=== PATIENT | female | born 1975 | race Caucasian/White ===

== ENCOUNTER 2017-01-04 18:51 | Emergency (ER) | payer MEDICAID ==
[2017-01-04 20:09] LABS: BASOPHILS 0.3 % (0.0-2.0); EOSINOPHILS 2.4 % (0-7); HEMATOCRIT 41.2 % (36.0-48.0); HEMOGLOBIN 13.9 g/dL (12-16); IMMATURE GRANULOCYTES 0.3 % (0-5); LYMPHOCYTES 15.8 % (15-50); MCH 30.6 pg (26.0-34.0); MCHC 33.7 g/dL (31.0-37.0); MCV 90.7 fL (80.0-100.0); MEAN PLATELET VOLUME 9.3 fL (7.4-10.4); MONOCYTES 4.7 % (2-11); NEUTROPHILS 76.5 % (40-80); RBC 4.54 10x6/uL (4.00-5.40); RDW 12.3 % (11.5-14.5); WBC 14.4 10x3/uL (4.8-10.8)
[2017-01-04 20:11] LABS: PLATELET COUNT 294 10x3/uL (130-400)
[2017-01-04 20:30] LABS: ALBUMIN 3.5 g/dL (3.4-5.0); ANION GAP 9.7 mmol/L (8-16); BILIRUBIN - TOTAL 0.15 mg/dL (0.2-1.3); CALCIUM 9.1 mg/dL (8.5-10.1); CARBON DIOXIDE 31.1 mmol/L (21.0-32.0); POTASSIUM - SERUM 3.8 mmol/L (3.5-5.1); PROTEIN - SERUM 6.9 g/dL (6.4-8.2)
[2017-01-04 20:45] LABS: HCG SERUM NEGATIVE (NEGATIVE)
== END 2017-01-05 01:43 | disposition home or self-care (01) ==
LOC: D.ER 18:51
PROVIDERS: Emergency Medicine
DX: N73.0 Acute parametritis and pelvic cellulitis (principal); G40.909 Epilepsy, unspecified, not intractable, without status epilepticus

== ENCOUNTER 2017-04-01 17:44 | Emergency (ER) | payer MEDICAID | END 2017-04-01 18:00 | disposition left against medical advice (07) | LOC: D.ER 17:44 | DX: Z02.9 Encounter for administrative examinations, unspecified (principal) ==

== ENCOUNTER 2018-02-21 08:35 | Inpatient (IN) | payer MEDICAID ==
[~2018-02-21] VITALS: Ht 154.9 cm; Wt 72.6 kg
--- NOTE | ~2018-02-21 | CN ---
PATIENT NAME:SUPRIYA CHENG MEDICAL RECORD: [id number] : 75 LOCATION:[facility] ADMIT DATE: 02/23/18 ACCOUNT: [id number] CONSULTING PHYSICIAN: GARDENIA NEWTON MD REFERRING PHYSICIAN: MAMADOU FLORES MD DATE OF CONSULTATION: 02/24/2018 ADMITTING PHYSICIAN: Dr. Mamadou Flores. REASON FOR CONSULTATION: New-onset diabetes mellitus. HISTORY OF PRESENT ILLNESS: The patient is a 42-year-old female who underwent a hysterectomy sparing ovaries 2 days ago. Postoperatively, she was noted to be hyperglycemic with blood sugars ranging from 187 to 223. The patient states that she has been told she was borderline in the past by her physician in [place], but never treated. She has a strong family history of diabetes in her parents and siblings. Denies any recent weight change. PAST MEDICAL HISTORY: Menorrhagia with pelvic pain, refractory to medical therapy, history of epilepsy from childhood, obesity. PAST SURGICAL HISTORY: Cholecystectomy, times 1, tubal ligation, removal of Norplant. ALLERGIES: None mentioned. MEDICATIONS: Dilantin 100 mg p.o. b.i.d. FAMILY HISTORY: Positive for CAD, lung disease, diabetes in parents. Some siblings have had diabetes as well. SOCIAL HISTORY: She has never smoked, does not use alcohol. REVIEW OF SYSTEMS: CONSTITUTIONAL: No fever, fatigue, or weight change. HEENT: No recent visual change, sinus congestion, or sore throat. RESPIRATORY: No SOB or cough. CARDIAC: No exertional chest pain, claudication or edema. GASTROINTESTINAL: No nausea, vomiting, change in stools or blood per rectum. ENDOCRINE: Denies polyuria, polydipsia, heat or cold intolerance. NEUROLOGIC: No history of stroke, TIA or vascular headaches. Had history of childhood epilepsy, last seizure was over a year ago. INTEGUMENT: No rash or itching. PSYCHIATRIC: Denies depressed mood. PHYSICAL EXAMINATION: VITAL SIGNS: Temperature 99 degrees Fahrenheit, heart rate is 110, blood pressure is 124/67, respiratory rate of 20, and room air O2 saturation of 95%. HEENT: Normocephalic. Eyes are clear. Fair dentition. NECK: No bruits. CHEST: Clear. HEART: Tachycardic without murmur. BREASTS: Symmetrical. ABDOMEN: Soft with moderate bowel sounds. The wound is not examined. EXTREMITIES: No CC&E. CONSULT REPORT [id number] SUPRIYA CHENG NEUROLOGICAL: She is oriented to person, place, and time. Cranial nerves intact. Gait not tested. She has good sensation in both feet, plantar aspect. LABORATORY DATA: H&H is 9.7 and 29.7, admitting was 12.6 and 37.0. BUN and creatinine are normal with creatinine of 1.1. Glucose has ranged from 230 to 158. A1c is pending. Liver functions are elevated with an AST of 157, ALT of 161, alkaline phosphatase of 133. ASSESSMENT: Type 2 diabetes mellitus, relatively new onset, two days status post hysterectomy sparing ovaries, history of seizure disorder, elevated liver transaminases, etiology unknown. Suspect fatty liver. PLAN: We will have dietary see concerning diabetic counseling. Place on metformin 500 mg with evening meal, sliding scale insulin and check hepatitis screen. Thank you for this consult. TRANSINT:[id number] Voice Confirmation ID: [id number] DOCUMENT ID: [id number] GARDENIA NEWTON MD at 0748 CC: [id number] DICTATION DATE: 02/24/182032 DUMPING MACHINE OPERATOR: 02/25/18 0743 ADM IN [facility] [address] [place] [address]
--- NOTE | ~2018-02-21 | OP ---
PATIENT NAME: SUPRIYA CHENG MEDICAL RECORD: [id number] :75 LOCATION:[facility] ADMISSION DATE:02/23/18 SURGEON: MAMADOU FLORES MD DATE OF OPERATION: 02/23/2018 PREOPERATIVE DIAGNOSES: 1. Pelvic pain. 2. Menorrhagia. POSTOPERATIVE DIAGNOSES: 1. Suspected adenomyosis and endometriosis. 2. 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 PROCEDURES: Lysis of adhesions, total abdominal hysterectomy, and bilateral salpingectomy. SURGEON: Mamadou Flores MD SOCIAL WORKER: Dr. Bahman Collins. SPECIMENS: Uterus with cervix and bilateral fallopian tubes. ESTIMATED BLOOD LOSS: 400 cc. DESCRIPTION OF PROCEDURE: The patient was taken to the operating room where general anesthesia was achieved without difficulty. The patient was then prepped and draped in normal sterile fashion in the dorsal supine position. SCDs were on and functioning normally. A Hinton catheter had been placed. A repeat Pfannenstiel skin incision was then made and extended downward to the underlying subcutaneous fat to the level of the fascia. This was then excised in the midline with a scalpel and developed bilaterally using the Casiano scissors. The superior and inferior aspects of the fascial incision were then grasped with Nan clamps times 2, tented upward, and sharply dissected from the underlying rectus muscle using the Bovie cautery and Casiano scissors. The peritoneum was identified and entered sharply at the superior aspect of the incision using the Metzenbaum scissors. Immediately upon entry of the abdomen, the peritoneal incision was extended bilaterally using the Metzenbaum scissors. At this point, the uterus was identified and extensive adhesive disease was noted between the lower uterine segment from previous scar and the bladder as well as omentum and the left adnexa. Attention was first turned to the left adnexa where several areas of omentum were dissected away from the left ovary and fallopian tube. Attention was then turned to the anterior portion of the uterus where the areas of scar tissue involving the bladder were very carefully dissected until the entirety of the broad ligament could be identified. At this point, the round ligaments were grasped bilaterally using Nan clamps times x2, cut, and suture ligated with 0 Vicryl. A bladder flap was created by excising the lateral portions of the anterior leaf of the broad ligament to the level of the bladder scarring. Careful dissection was performed and the bladder was slowly dissected downward from the cervix until the uterine arteries could be identified. A defect was then made bilateral in the posterior leaf of the broad ligament and the proximal fallopian tube, uteroovarian ligament were double clamped with Jesse clamps. These were then cut and suture ligated. The uterine vessels were then skeletonized and further dissection of the bladder took place. At this point, the uterine arteries were clamped with OPERATIVE REPORT [id number] SUPRIYA CHENG curved Jesse clamps bilaterally. The uterine vessels were then cut and suture ligated. Careful dissection of the bladder was continued and the uterus without cervix was then amputated and removed from the surgical field for better visualization. At this point, Dr. Collins entered to surgery to assist with dissection. The bladder was dissected downward to the point of its investment with the vagina. The cardinal ligaments were clamped with straight Jesse clamps, cut, and suture ligated. The remaining cervical stump was delineated well and a defect in the vagina was created using the scalpel. The vaginal fornix was identified and the cervix was removed circumferentially from the superior aspect of the vagina. The vaginal cuff was then repaired with 0 Vicryl in interrupted fashion with [id number] until good hemostasis was noted. Several areas of the top of the vagina were oversewn using 2-0 Vicryl superficially with good hemostasis noted. Attention was then turned to the bilateral fallopian tubes, which were then skeletonized, clamped at their most proximal portion with a curved Jesse clamp, cut, free tied with 0 Vicryl, and suture ligated. This was performed bilaterally with good hemostasis noted. The pelvis then thoroughly irrigated. The patient had been given indigo carmine and the urine was turning bluish green color at that time. Counts were correct times 2 following thorough irrigation of the pelvis. The fascia was repaired with 0 loop PDS times 1 once the counts were correct times 2 for needles, sponges, and instruments. The skin was repaired with ana rosa. The patient tolerated the procedure well and was transferred to postanesthesia recovery stable without incident. TRANSINT:[id number] Voice Confirmation ID: [id number] DOCUMENT ID: [id number] MAMADOU FLORES MD at 0256 CC: [id number] DICTATION DATE: 03/12/18 0731 TRIAGE TECHNICIAN: 03/12/18 1415 DIS IN 02/26/18 [facility] [address] [place] [id number]
[2018-02-21] MEDS ORDERED: DILANTIN100 MG PO (08:48)
[2018-02-21 09:24] LABS: BASOPHILS 1.1 % (0-2); EOSINOPHILS 2.7 % (0-7); HEMOGLOBIN 12.6 g/dL (12-16); IMMATURE GRANULOCYTES 0.1 % (0-5); LYMPHOCYTES 34.4 % (15-50); MCH 29.4 pg (26.0-34.0); MCHC 34.1 g/dL (31.0-37.0); MCV 86.4 fL (80.0-100.0); MEAN PLATELET VOLUME 9.1 fL (7.4-10.4); NEUTROPHILS 53.7 % (40-80); PLATELET COUNT 313 10x3/uL (130-400); RBC 4.28 10x6/uL (4.00-5.40); RDW 12.9 % (11.5-14.5)
[2018-02-21 09:40] LABS: ANION GAP 12.3 mmol/L (8-16); CALCIUM 8.8 mg/dL (8.5-10.1); CARBON DIOXIDE 26.3 mmol/L (21.0-32.0); POTASSIUM - SERUM 3.6 mmol/L (3.5-5.1)
[2018-02-23] VITALS (18 sets, daily range): BP systolic 108–164; BP diastolic 57–80; BMI 33.3; BMI 30.3
[2018-02-23] MEDS ORDERED: MIDOL CAPLET1 EACH PO (06:06)
[2018-02-23 06:13] LABS: HCG URINE NEGATIVE (NEGATIVE)
[2018-02-23 13:49] LABS: ANION GAP 11.9 mmol/L (8-16); CARBON DIOXIDE 27.3 mmol/L (21.0-32.0); CREATININE - SERUM 0.9 mg/dL (0.6-1.3); POTASSIUM - SERUM 4.2 mmol/L (3.5-5.1)
[2018-02-23 13:50] LABS: BASOPHILS 0.1 % (0-2); EOSINOPHILS 0.4 % (0-7); HEMOGLOBIN 10.5 g/dL (12-16); IMMATURE GRANULOCYTES 0.4 % (0-5); LYMPHOCYTES 11.7 % (15-50); MCH 28.8 pg (26.0-34.0); MCHC 33.9 g/dL (31.0-37.0); MCV 85.2 fL (80.0-100.0); MEAN PLATELET VOLUME 8.8 fL (7.4-10.4); MONOCYTES 6.5 % (2-11); NEUTROPHILS 80.9 % (40-80); PLATELET COUNT 255 10x3/uL (130-400); RBC 3.64 10x6/uL (4.00-5.40); WBC 10.5 10x3/uL (4.8-10.8)
[2018-02-24 02:52] VITALS: BP 103/57
[2018-02-24 06:28] LABS: BASOPHILS 0.1 % (0-2); EOSINOPHILS 1.7 % (0-7); HEMATOCRIT 29.7 % (36.0-48.0); HEMOGLOBIN 9.7 g/dL (12-16); IMMATURE GRANULOCYTES 0.2 % (0-5); LYMPHOCYTES 10.8 % (15-50); MCH 28.9 pg (26.0-34.0); MCHC 32.7 g/dL (31.0-37.0); MONOCYTES 8.2 % (2-11); PLATELET COUNT 293 10x3/uL (130-400); RBC 3.36 10x6/uL (4.00-5.40); RDW 13.1 % (11.5-14.5); WBC 11.1 10x3/uL (4.8-10.8)
[2018-02-24 06:36] LABS: MCV 88.4 fL (80.0-100.0)
[2018-02-24 06:59] LABS: ANION GAP 11.8 mmol/L (8-16); CALCIUM 8.1 mg/dL (8.5-10.1); CARBON DIOXIDE 26.2 mmol/L (21.0-32.0); CREATININE - SERUM 1.1 mg/dL (0.6-1.3)
[2018-02-24 07:15] VITALS: BP 96/54
[2018-02-24 09:44] VITALS: Ht 154.9 cm; Wt 72.6 kg
[2018-02-24 12:01] VITALS: BP 103/52
[2018-02-24 14:56] LABS: ALBUMIN 2.1 g/dL (3.4-5.0); ANION GAP 9.7 mmol/L (8-16); BILIRUBIN - TOTAL 0.57 mg/dL (0.2-1.3); CALCIUM 7.6 mg/dL (8.5-10.1); CREATININE - SERUM 1.1 mg/dL (0.6-1.3); POTASSIUM - SERUM 3.7 mmol/L (3.5-5.1); PROTEIN - SERUM 5.1 g/dL (6.4-8.2)
[2018-02-24 18:30] VITALS: BP 124/67
[2018-02-24 20:00] VITALS: BP 117/67
[2018-02-25] VITALS (8 sets, daily range): BP systolic 113–184; BP diastolic 56–86
[2018-02-26 00:56] VITALS: BP 168/76
[2018-02-26 07:35] VITALS: BP 165/80
[2018-02-26] MEDS ORDERED: PHENERGAN25 MG RC (09:01)
[2018-02-26] MEDS ORDERED: GLUCOPHAGE500 MG PO (09:02)
[2018-02-26] MEDS ORDERED: IBUPROFEN600 MG PO (09:03)
[2018-02-26] MEDS ORDERED: HYDROCODONE-APA1 TAB (09:03)
[2018-02-28 05:14] LABS: HEPATITIS C ANTIBODY <0.1 (0.0-0.9)
== END 2018-02-26 09:32 | disposition home or self-care (01) | DRG 742 ==
LOC: D.SDCHOLD 08:35 → D.LD 02-23 05:10 → D.SDCHOLD 02-23 05:10 → D.LD 02-23 10:18
PROVIDERS: Family Medicine; Obstetrics & Gynecology
PROC: 0UB70ZZ Excision of Bilateral Fallopian Tubes, Open Approach (ICD-10-PCS; 2018-02-23)
PROC: 0UT90ZZ Resection of Uterus, Open Approach (ICD-10-PCS; principal; 2018-02-23 07:30)
PROC: 0TNB0ZZ Release Bladder, Open Approach (ICD-10-PCS; 2018-02-23 07:30)
DX: N92.0 Excessive and frequent menstruation with regular cycle (principal); D62 Acute posthemorrhagic anemia; J98.11 Atelectasis; R10.2 Pelvic and perineal pain; G40.909 Epilepsy, unspecified, not intractable, without status epilepticus; E11.65 Type 2 diabetes mellitus with hyperglycemia; E66.9 Obesity, unspecified; R00.0 Tachycardia, unspecified; R74.8 Abnormal levels of other serum enzymes; Z68.30 Body mass index [BMI] 30.0-30.9, adult

== ENCOUNTER 2018-02-28 10:50 | Emergency (ER) | payer MEDICAID ==
[2018-02-24 09:44] VITALS: BMI 30.2
[~2018-02-28 10:50] MED LIST: DILANTIN100 MG PO; GLUCOPHAGE500 MG PO; HYDROCODONE-APA1 TAB; IBUPROFEN600 MG PO; MIDOL CAPLET1 EACH PO; PHENERGAN25 MG RC
[2018-02-28 11:42] LABS: BASOPHILS 0.3 % (0-2); EOSINOPHILS 5.3 % (0-7); HEMOGLOBIN 11.2 g/dL (12-16); IMMATURE GRANULOCYTES 0.9 % (0-5); LYMPHOCYTES 13.1 % (15-50); MCH 28.6 pg (26.0-34.0); MCHC 32.9 g/dL (31.0-37.0); MEAN PLATELET VOLUME 10.3 fL (7.4-10.4); MONOCYTES 6.1 % (2-11); NEUTROPHILS 74.3 % (40-80); RBC 3.91 10x6/uL (4.00-5.40); RDW 13.3 % (11.5-14.5); WBC 12.5 10x3/uL (4.8-10.8)
[2018-02-28 11:44] LABS: PLATELET COUNT 172 10x3/uL (130-400)
== END 2018-02-28 14:18 | disposition home or self-care (01) ==
LOC: D.ER 10:50
PROVIDERS: Family Medicine
DX: R11.10 Vomiting, unspecified (principal)

== ENCOUNTER 2018-03-03 10:13 | Emergency (ER) | payer MEDICAID ==
[2018-02-24 09:44] VITALS: BMI 30.2
[2018-03-03 11:06] LABS: APPEARANCE CLOUDY (CLEAR); COLOR YELLOW (YELLOW); NITRITE NEGATIVE (NEGATIVE); SPECIFIC GRAVITY 1.025 (1.005-1.020)
[2018-03-03 11:07] LABS: BILIRUBIN NEGATIVE (NEGATIVE); GLUCOSE NEGATIVE (NEGATIVE); KETONE MODERATE mg/dL (NEGATIVE); PROTEIN NEGATIVE (NEGATIVE); UROBILINOGEN NORMAL (NORMAL)
[2018-03-03 11:09] LABS: BACTERIA MODERATE /hpf (NONE SEEN); CALCIUM OXALATE CRYSTALS 0-5 /hpf (NONE SEEN); EPITHELIAL CELLS 25-50 /hpf (0-5); MUCUS >1+ /lpf (NONE SEEN); WHITE CELLS - URINE 25-50 /hpf (0-5)
[2018-03-03 11:16] LABS: BASOPHILS 0.8 % (0-2); EOSINOPHILS 4.3 % (0-7); HEMATOCRIT 35.9 % (36.0-48.0); IMMATURE GRANULOCYTES 0.9 % (0-5); LYMPHOCYTES 23.8 % (15-50); MCH 28.5 pg (26.0-34.0); MCHC 33.4 g/dL (31.0-37.0); MCV 85.3 fL (80.0-100.0); MEAN PLATELET VOLUME 8.9 fL (7.4-10.4); MONOCYTES 8.8 % (2-11); NEUTROPHILS 61.4 % (40-80); PLATELET COUNT 592 10x3/uL (130-400); RBC 4.21 10x6/uL (4.00-5.40); RDW 13.1 % (11.5-14.5); WBC 15.9 10x3/uL (4.8-10.8)
== END 2018-03-03 12:20 | disposition home or self-care (01) ==
LOC: D.ER 10:13
PROVIDERS: Family Medicine; Nurse Practitioner Family
DX: N39.0 Urinary tract infection, site not specified (principal); G89.18 Other acute postprocedural pain